=== PATIENT | female | born 1955 | race Caucasian/White ===

== ENCOUNTER → 2025-10-09 19:46 | Outpatient (REF) | payer OTHER, SELFPAY | LOC: PAVMRI 19:46 | PROVIDERS: ATTENDING PHYSICIAN Podiatrist Foot & Ankle Surgery; FAMILY PHYSICIAN Internal Medicine | DX: M84.375A Stress fracture, left foot, initial encounter for fracture (principal) | CPT/HCPCS: 73718 ==